=== PATIENT | female | born 1990 | race Caucasian/White ===

== ENCOUNTER 2016-05-03 12:01 | Emergency (ER) ==
[2016-05-03 12:09] VITALS: BP 114/77
[2016-05-03 12:18] LABS: MANUAL DIFF NEEDED? NO
--- NOTE | 2016-05-03 12:19 | ED EKG INTERP ---
EKG Interpretation - EKG Time of EKG reading by physician:: 12:11 EKG Read and Signed by:: Adonis Daigle EKG Interpretation (*Must complete 3 of following elements*): Normal Rate: 70 Rhythm: sinus rhythm with marked sinus arrhythmia Attestation - Scribe Verification/Attestation Scribe:: Nicki Armas Acting as Scribe for:: Adonis Daigle Scribe documention review:: This chart was documented by a scribe and accurately reflects the service the provider performed and the decisions made by the provider.
[2016-05-03 12:23] LABS: BASO% 0.7 % (0.0-0.8); EOS# 0.18 X1000 (0.0-0.7); EOS% 1.4 % (0.0-10.0); HEMATOCRIT 43.3 % (37.0-47.0); HEMOGLOBIN 14.8 g/dL (12.0-16.0); IMM GRAN# 0.02 X1000 (0.0-0.04); IMM GRAN% 0.2 % (0.0-0.5); LYMPH# 3.05 X1000 (1.2-3.4); LYMPH% 24.3 % (20.5-51.1); MCH 31.7 PG (27-31); MCHC 34.2 g/dL (33-37); MCV 92.7 FL (81-99); MONO# 0.88 X1000 (0.11-0.59); NEUT% 66.4 % (42.2-75.2); PLT 334 X1000 (130-400); RBC 4.67 XMIL (4.2-5.4)
[2016-05-03 12:37] LABS: URINE CULTURE NEEDED? NO; URINE MICRO REVIEW NEEDED? NO; URINE SOURCE CLEAN CATCH
[2016-05-03 12:40] LABS: INR 1.06; PROTIME 10.8 Seconds (9.2-11.7)
[2016-05-03 12:41] LABS: BILIRUBIN URINE NEGATIVE (NEGATIVE); BLOOD URINE NEGATIVE (NEGATIVE); COLOR YELLOW; GLUCOSE URINE NEGATIVE (NEGATIVE); LEUKOCYTES URINE NEGATIVE (NEGATIVE); NITRITE URINE NEGATIVE (NEGATIVE); PROTEIN URINE NEGATIVE (NEGATIVE); TURBIDITY URINE CLEAR (CLEAR); UROBILINOGEN URINE NORMAL (NORMAL)
[2016-05-03 12:43] LABS: UR EPITHELIAL CELLS <10 /HPF (<10); URINE BACTERIA 1+ /HPF; URINE RBC <10 /HPF (<10); URINE WBC <10 /HPF (<10)
[2016-05-03 13:02] LABS: AGAP 12; ALKALINE PHOSPHATASE 110 U/L (32-104); BUN 9 mg/dL (8-22); CALCIUM 8.9 mg/dL (8.8-10.2); CHLORIDE 105 mmol/L (98-107); CK PROFILE 83 U/L (24-173); COSMO 274; GOT 15 U/L (10-30); GPT 11 U/L (10-36); MAGNESIUM 2.1 mg/dL (1.5-2.7); POTASSIUM 3.8 mmol/L (3.5-5.1); SODIUM 138 mmol/L (136-145); TCO2 21 mmol/L (25-35); TOTAL BILIRUBIN 0.46 mg/dL (0.20-1.00); TOTAL PROTEIN 7.2 g/dL (6.3-8.3)
[2016-05-03 14:08] LABS: UR AMPHETAMINES QUAL NONE DETECTED (NONE DETECT); UR BARBITUATES QUAL NONE DETECTED (NONE DETECT); UR BENZODIAZEPIN QUAL NONE DETECTED (NONE DETECT); UR CANNABINOIDS QUAL PRESUMPTIVE POSITIVE (NONE DETECT); UR COCAINE QUAL NONE DETECTED (NONE DETECT); UR METHADONE QUAL NONE DETECTED (NONE DETECT); UR OPIATES QUAL NONE DETECTED (NONE DETECT); UR OXYCODONE QUAL NONE DETECTED (NONE DETECT); UR PCP QUAL NONE DETECTED (NONE DETECT)
--- NOTE | 2016-05-03 14:48 | Diag Imaging Result Document ---
PROCEDURE NAME: CHEST-2 VIEWS - 05/03/2016 FRONTAL AND LATERAL CHEST, 2 VIEWS: FINDINGS: Compared to 04/05/2016. The lungs are well expanded. The heart is not enlarged. The vessels are not distended. No pneumonia. No pleural effusions. Mild scoliosis. IMPRESSION: No acute abnormality.
--- NOTE | 2016-05-03 14:54 | PROVIDER DOCUMENTATION ---
HPI-Chest Pain - General Chief Complaint: Chest Pain Stated Complaint: CP Time Seen by Provider: 05/03/16 13:14 Source: patient Allergies/Adverse Reactions: Patient Allergies Allergy/AdvReac Type Severity Reaction Status Date / Time Penicillins Allergy Unknown Verified 04/05/16 15:03 Home Medications: Home Medication List Medication Instructions Recorded Confirmed Last Taken Type Azithromycin [Zithromax Z-Dallin] 250 mg PO DIRECTED #1 pkg 04/05/16 Unknown Rx Ibuprofen [Motrin] 800 mg PO Q8H PRN PRN #20 tablet 04/05/16 Unknown Rx Methylprednisolone [Medrol Dosepak] 4 mg PO DIRECTED #1 package 04/05/16 Unknown Rx Omeprazole [Prilosec] 20 mg PO DAILY@0700 #20 capsule 04/05/16 Unknown Rx - History of Present Illness-CP Nature of Presenting Problem: 26 y/o F presented with subacute sudden chest pain and SOB that started 2 days ago and has been getting worse. It increases with deep breathing and coughing. She denies fever or chills. She does not have any idea about her family medical marleni. Location: reports: substernal Chest Pain Radiation: reports: no radiation Quality of Pain: reports: stabbing Severity in ED: severe Onset/Duration: 2 days ago Timing: getting worse Modifying Factors: improves with: rest, other (upright position) Associated Symptoms: reports: back pain, shortness of breath Nitro Today/Relief: no nitro taken today Aspirin Treatment Today: no aspirin today Similar Symptoms Previously?: No Recently Seen Here or By Another Healthcare Provider: No Review of Systems - Adult - REVIEW OF SYSTEMS - ADULT Constitutional: reports: no symptoms reported Eyes: reports: no symptoms reported Ears, Nose, Mouth & Throat: reports: no symptoms reported Cardiovascular: reports: chest pain, orthopnea. denies: PND Respiratory: reports: cough, pleurisy, shortness of breath Gastrointestinal: reports: no symptoms reported Genitourinary: reports: no symptoms reported Musculoskeletal: reports: no symptoms reported Integumentary: reports: no symptoms reported Neurological: reports: no symptoms reported Psychiatric: reports: no symptoms reported Past History - Adult - PAST MEDICAL HISTORY-ADULT Review of Records: reports: Nursing Assessment Review, Medications Reviewed Major Childhood Illnesses: reports: denies history Cardiovascular: reports: denies history Respiratory: reports: denies history Gastrointestinal: reports: denies history Obstetrical/Gynecological: reports: denies history Genitourinary: reports: denies history Musculoskeletal: reports: denies history Neurological: reports: denies history Endocrine/Immune: reports: denies history Other Conditions: reports: denies history - IMMUNIZATION STATUS Childhood Immunizations: See Nurse Assessment Flu Vaccine: See Nurse Assessment - FAMILY HISTORY Family History: reviewed, not pertinent Physical Exam-General - PHYSICAL EXAM-ADULT Initial Vital Signs Reviewed: Yes - CONSTITUTIONAL General Appearance: moderate distress, thin - EYES Eyes: PERRL/EOMI - HEAD, EARS, NOSE, MOUTH & THROAT HENMT: normocephalic/atraumatic - NECK Neck: supple - RESPIRATORY Respiratory: lungs clear, decreased breath sounds, pain on inspiration - CARDIOVASCULAR Cardiovascular: tachycardia - GASTROINTESTINAL (ABDOMEN) Abdominal Exam: normal bowel sounds, soft - MUSCULOSKELETAL Back Exam: normal inspection, CVA tenderness Extremity: normal range of motion, no pedal edema - SKIN Integumentary: warm/dry - NEUROLOGIC Neurologic: grossly normal - PSYCHIATRIC Psych/Mental Status: oriented x 3 Progress - PLAN OF CARE/RESULTS Progress/Plan/Lab Results: Vital Signs - 24 hr 05/03/16 12:07 Temperature 98.1 F Pulse Rate 95 H Respiratory 18 Rate Blood Pressure 114/77 O2 Sat by Pulse 100 Oximetry Laboratory Tests 05/03/16 05/03/16 05/03/16 12:12 12:12 12:12 WBC 12.53 H RBC 4.67 Hgb 14.8 Hct 43.3 MCV 92.7 MCH 31.7 H MCHC 34.2 RDW Std Deviation 12.9 Plt Count 334 MPV 10.0 Immature Gran % (Auto) 0.2 Neut % (Auto) 66.4 Lymph % (Auto) 24.3 Mcminn % (Auto) 7.0 Eos % (Auto) 1.4 Baso % (Auto) 0.7 Immature Gran # (Auto) 0.02 Neut # (Auto) 8.31 H Lymph # (Auto) 3.05 Mcminn # (Auto) 0.88 H Eos # (Auto) 0.18 Baso # (Auto) 0.09 PT INR PTT (Actin FS) D-Dimer 0.53 H Sodium 138 Potassium 3.8 Chloride 105 Carbon Dioxide 21 L Anion Gap 12 BUN 9 Creatinine 0.7 Estimated GFR/1.73 m2 > 60 BUN/Creatinine Ratio 13 Glucose 92 Calculated Osmolality 274 Calcium 8.9 Magnesium 2.1 Total Bilirubin 0.46 AST 15 ALT 11 Alkaline Phosphatase 110 H Creatine Kinase 83 Troponin T [id number]-Nyeshaycnqf Pept Total Protein 7.2 Albumin 4.0 Globulin 3.2 Albumin/Globulin Ratio 1.3 Urine Source Urine Color Urine Turbidity Urine pH Ur Specific [place] Urine Protein Ur Glucose (Stick) Ur Ketones (Stick) Urine Blood Urine Nitrite Urine Bilirubin Urobilinogen Dipstick Urine Leukocytes Urine WBC (Auto) Urine RBC (Auto) U Epithel Cells (Auto) Urine Bacteria (Auto) Urine Opiates Screen Ur Oxycodone Screen Ur Methadone, Qual Ur Barbiturates Screen Ur Phencyclidine Scrn Ur Amphetamines Screen U Benzodiazepines Scrn Urine Cocaine Screen U Cannabinoids Screen 05/03/16 05/03/16 05/03/16 12:12 12:12 12:12 WBC RBC Hgb Hct MCV MCH MCHC RDW Std Deviation Plt Count MPV Immature Gran % (Auto) Neut % (Auto) Lymph % (Auto) Mcminn % (Auto) Eos % (Auto) Baso % (Auto) Immature Gran # (Auto) Neut # (Auto) Lymph # (Auto) Mcminn # (Auto) Eos # (Auto) Baso # (Auto) PT 10.8 INR 1.06 PTT (Actin FS) 28.0 D-Dimer Sodium Potassium Chloride Carbon Dioxide Anion Gap BUN Creatinine Estimated GFR/1.73 m2 BUN/Creatinine Ratio Glucose Calculated Osmolality Calcium Magnesium Total Bilirubin AST ALT Alkaline Phosphatase Creatine Kinase Troponin T < 0.010 [id number] Pept 82 Total Protein Albumin Globulin Albumin/Globulin Ratio Urine Source Urine Color Urine Turbidity Urine pH Ur Specific [place] Urine Protein Ur Glucose (Stick) Ur Ketones (Stick) Urine Blood Urine Nitrite Urine Bilirubin Urobilinogen Dipstick Urine Leukocytes Urine WBC (Auto) Urine RBC (Auto) U Epithel Cells (Auto) Urine Bacteria (Auto) Urine Opiates Screen Ur Oxycodone Screen Ur Methadone, Qual Ur Barbiturates Screen Ur Phencyclidine Scrn Ur Amphetamines Screen U Benzodiazepines Scrn Urine Cocaine Screen U Cannabinoids Screen 05/03/16 05/03/16 12:20 12:20 WBC RBC Hgb Hct MCV MCH MCHC RDW Std Deviation Plt Count MPV Immature Gran % (Auto) Neut % (Auto) Lymph % (Auto) Mcminn % (Auto) Eos % (Auto) Baso % (Auto) Immature Gran # (Auto) Neut # (Auto) Lymph # (Auto) Mcminn # (Auto) Eos # (Auto) Baso # (Auto) PT INR PTT (Actin FS) D-Dimer Sodium Potassium Chloride Carbon Dioxide Anion Gap BUN Creatinine Estimated GFR/1.73 m2 BUN/Creatinine Ratio Glucose Calculated Osmolality Calcium Magnesium Total Bilirubin AST ALT Alkaline Phosphatase Creatine Kinase Troponin T [id number] Pept Total Protein Albumin Globulin Albumin/Globulin Ratio Urine Source CLEAN CATCH Urine Color YELLOW Urine Turbidity CLEAR Urine pH 6.0 Ur Specific [place] 1.020 Urine Protein NEGATIVE Ur Glucose (Stick) NEGATIVE Ur Ketones (Stick) 20 A Urine Blood NEGATIVE Urine Nitrite NEGATIVE Urine Bilirubin NEGATIVE Urobilinogen Dipstick NORMAL Urine Leukocytes NEGATIVE Urine WBC (Auto) <10 Urine RBC (Auto) <10 U Epithel Cells (Auto) <10 Urine Bacteria (Auto) 1+ Urine Opiates Screen NONE DETECTED Ur Oxycodone Screen NONE DETECTED Ur Methadone, Qual NONE DETECTED Ur Barbiturates Screen NONE DETECTED Ur Phencyclidine Scrn NONE DETECTED Ur Amphetamines Screen NONE DETECTED U Benzodiazepines Scrn NONE DETECTED Urine Cocaine Screen NONE DETECTED U Cannabinoids Screen PRESUMPTIVE POSITIVE A - XRAY 1 XRAY: Bilateral XRAY Study: Chest Impression: Normal Departure - Departure Time of Disposition Order: 14:56 DIAGNOSIS: Costochondritis, acute Disposition: [address] Medical Emergency: Emergent Condition: Stable Referrals: None,PCP [Primary Care Provider] -
--- NOTE | 2016-05-04 09:23 | EKG Report ---
Test Performed on : 05/03/2016 12:11:10 PM Test Reason : Chest Pain Blood Pressure : / mmHG Vent. Rate : 070 BPM Atrial Rate : 070 BPM P-R Int : 142 ms QRS Dur : 076 ms QT Int : 368 ms P-R-T Axes : 055 079 015 degrees QTc Int : 397 ms Sinus rhythm. with marked sinus arrhythmia. Otherwise normal ECG No previous ECGs available Unconfirmed Result
== END 2016-05-03 15:00 | disposition left against medical advice (07) ==
LOC: ED 12:01
DX: M94.0 Chondrocostal junction syndrome [Tietze] (principal); R07.89 Other chest pain; R06.02 Shortness of breath; R07.1 Chest pain on breathing; R05 Cough; M54.9 Dorsalgia, unspecified; R06.01 Orthopnea; R09.1 Pleurisy
CPT/HCPCS: 36415; 71020; 80053; 81001; 81025; 82550; 83735; 83880; 84484; 85025; 85379; 85610; 85730; 93005; G0480; 80324; 80345; 80346; 80349; 80353; 80358; 80361; 80365; 83992